=== PATIENT | female | born 1925 | race Caucasian/White ===

== ENCOUNTER 2017-03-24 12:00 | Inpatient (IN) | payer MEDICARE, OTHER ==
[~2017-03-24] VITALS: Ht 157.5 cm; Wt 56.0 kg
--- NOTE | ~2017-03-24 | CON ---
PATIENT'S NAME: ALBERTO LEROY [facility] AGE: 89 Y [address] ROOM: [id number] [place], [place] [address] LOCATION: G3N ADMIT DATE: 03/24/2017 Consultation DISCHARGE DATE: FAMILY PHYSICIAN: PHYSICIAN, UNKNOWN ATTENDING PHYSICIAN: Trav Gaston DATE OF CONSULTATION: 03/24/2017 REFERRING PHYSICIAN: LAURA BOND MD PCP: Foreign Garner MD CHIEF COMPLAINT: Right hip fracture following mechanical fall. HISTORY OF PRESENT ILLNESS: Ms. Leroy is an 89-year-old female who currently resides at [facility] in [place], [place] with a pertinent past medical history including atrial fibrillation, hypertension, hypothyroidism, and dyslipidemia. She is currently residing at [facility] after recovering from a left hip revision done by Dr. Diallo approximately six weeks ago. The history of this present illness is currently obtained by visiting with the patient herself, who is somewhat hard of hearing, but a reasonable historian along with her daughter, who is accompanying her and who is a very good historian and is able to give us information on the patient's circumstances. Ms. Leroy was ambulating this morning with assistance to the restroom when she had a fall. She had immediate pain on the right. At that point, a hip fracture was suspected, and she was brought to seek medical attention, where an x-ray was obtained and showed intertrochanteric fracture. At that point, arrangements were made for the patient to be transferred to [facility] for a higher level of care and for Orthopedic consultation. The patient, as stated, has recently been under the care of Dr. Martins and Dr. Diallo following her revision of the left hip. Her appetite has been somewhat diminished, but might have improved as of recent coming off the fentanyl patch. The patient had been on Lovenox for DVT prophylaxis following her left hip revision, and had recently been converted over to oral Coumadin. Daughter reports that her INR had been found to be quite elevated last Wednesday. The daughter believes an INR level was 11.2. Vitamin K had been given at that time, and she has not resumed the Coumadin. An INR this morning was 1.2 at the [facility] when seen. We were asked to consult for medical clearance to take her to the OR for repair. The patient denies any other complaints outside of her hip pain on the right. Prior to her left hip revision, she had been living independently in her own home. PATIENT'S NAME: ALBERTO LEROY [facility] AGE: 89 Y [address] ROOM: [place] [address] LOCATION: [facility] ADMIT DATE: 03/24/2017 Consultation DISCHARGE DATE: FAMILY PHYSICIAN: PHYSICIAN, UNKNOWN ATTENDING PHYSICIAN: Trav Gaston REVIEW OF SYSTEMS: All other review of systems were questioned and documented, and are negative outside of what is outlined in the history of present illness. PAST MEDICAL HISTORY: 1. Hypertension, essential. 2. Hypothyroidism. 3. Dyslipidemia. 4. Macular degeneration. 5. Atrial fibrillation, controlled. 6. Hard of hearing. PAST SURGICAL HISTORY: 1. Left hip ORIF in 01/2015. 2. Recent revision of the left hip approximately six weeks ago. 3. Right shoulder surgery. 4. Appendectomy. 5. Left knee surgery. 6. Venous stripping of the right lower extremity. 7. History of back surgery. ALLERGIES: NO KNOWN DRUG ALLERGIES. SOCIAL HISTORY: The patient is a , and lived independently by herself. She denies any history of tobacco use nor alcohol nor illicit drugs. She has eight children. FAMILY HISTORY: Mother at age 67 of a stomach cancer. Father at the age of 75 with emphysema. MEDICATIONS AT THE TIME OF ADMISSION: 1. Amiodarone 200 mg p.o. daily. 2. Calcium with vitamin D 600 mg p.o. daily. 3. Cardizem LA tablet extended release 180 mg p.o. daily. 4. Losartan 25 mg p.o. daily. 5. MiraLAX 17 g p.o. daily. 6. Senna one tablet p.o. daily. 7. Simvastatin 10 mg one tablet p.o. at bedtime. 8. Synthroid 75 mcg p.o. daily. 9. Vision vitamin tablet, one tablet p.o. daily. 10. Vitamin B12 tablet 1000 mcg p.o. daily. 11. Metoprolol tartrate 25 mg p.o. b.i.d. PATIENT'S NAME: ALBERTO LEROY [facility] AGE: 89 Y [address] ROOM: [address] [address] LOCATION: [facility] ADMIT DATE: 03/24/2017 Consultation DISCHARGE DATE: FAMILY PHYSICIAN: PHYSICIAN, UNKNOWN ATTENDING PHYSICIAN: Trav Gaston 12. Probiotic capsule one tablet p.o. b.i.d. 13. Refresh solution two drops to both eyes two times a day. 14. APAP 325 mg two tablets p.o. daily. 15. APAP 650 mg p.o. q.4 hours p.r.n. pain. 16. Biotene dry mouth liquid p.r.n. dry mouth. 17. Hydrocodone/APAP 5/325 one tablet p.o. every 6 hours p.r.n. pain. 18. Milk of magnesia 30 mL p.o. daily p.r.n. constipation. 19. Zofran ODT 8 mg p.o. every six hours p.r.n. nausea and vomiting. PHYSICAL EXAMINATION: VITAL SIGNS: On arrival, blood pressure was 157/81, pulse was 93, respirations were 16, temperature was 98.4, and 98% on 2 L of O2. GENERAL: A pleasant, elderly female, who rests in bed, and appears comfortable at this point. She is alert and awake and oriented x3. The patient is hard of hearing. HEENT: Normocephalic and atraumatic. Pupils are equal and reactive bilaterally. Mucosa appears a little tacky. NECK: Supple. No areas of tenderness. No lymphadenopathy. CARDIOVASCULAR: Currently regular rate and rhythm. S1 and S2. CHEST: Diminished, but clear to auscultation bilaterally. ABDOMEN: Soft and nondistended. No areas of tenderness. I cannot appreciate any organomegaly. Diminished bowel sounds. EXTREMITIES: The patient's right leg does appear shorter than left at this point when externally rotated. No edema is noted. No erythema. SKIN: I do not appreciate any breakdown. I do not appreciate any rashes. RADIOLOGIC STUDIES: Chest x-ray was obtained, and appears clear of any obvious abnormalities. I do not appreciate any infiltrates or acute processes. LABORATORY DATA: Currently pending. Labs from this morning are reviewed, and an INR of 1.2 was noted. UA is also currently pending. ASSESSMENT AND PLAN: 1. An 89-year-old who has suffered a mechanical fall, resulting in a right hip fracture, intertrochanteric, repair per Dr. Gaston. 2. Hypertension, essential. We will continue with her home medications. 3. Hypothyroidism. We will continue her home medications. 4. Dyslipidemia, stable. Continue with her home medications. 5. Atrial fibrillation. Rates are controlled at this time. We will continue with her amiodarone. Lovenox is currently on hold. We will discuss resuming this postoperatively and bridging with Lovenox. 6. Anemia, present on admission. Her hemoglobin on the morning labs was 10.1. We are checking now currently and will follow. PATIENT'S NAME: ALBERTO LEROY [facility] AGE: 89 Y [address] ROOM: [place] [address] LOCATION: [facility] ADMIT DATE: 03/24/2017 Consultation DISCHARGE DATE: FAMILY PHYSICIAN: PHYSICIAN, UNKNOWN ATTENDING PHYSICIAN: Trav Gaston 7. 'Do not resuscitate' status. The patient is cleared for the OR. We will follow along with the patient and help with management postoperatively as need be. The ultimate plan will be for the patient to transfer back to the [facility] in [place], [place], when deemed appropriate. HOMAR EPPS PA-C FOR LAURA BOND MD ABM/modl /[id number] CC: Foreign Garner MD d: 03/24/172119 t: 03/29/171948, CONSULTATION REPORT
--- NOTE | ~2017-03-24 | OR ---
PATIENT'S NAME: ALBERTO LEROY [facility] AGE: 89 Y [address] ROOM: [address] [address] LOCATION: [facility] ADMIT DATE: 03/24/2017 OR/Procedure Report DISCHARGE DATE: FAMILY PHYSICIAN: Foreign Garner MD ATTENDING PHYSICIAN: Trav Gaston SURGEON: Trav Gaston MD PAPER NOVELTY MAKER: DATE OF PROCEDURE: 03/24/2017 PREOPERATIVE DIAGNOSIS: Pertrochanteric fracture, right hip. POSTOPERATIVE DIAGNOSIS: Pertrochanteric fracture, right hip. OPERATION: ORIF right hip with long TFN. ANESTHESIA: Subarachnoid block. INDICATIONS: This is an 89-year-old female from [place], who fell sustaining a pertrochanteric fracture of her right hip. She has had problems with her left hip fracture and has had recent revision of her compression screw fixation. Her radiographs look like she has collapsed of the femoral head on the left side. DESCRIPTION OF PROCEDURE: The patient was brought to the operating room and when a satisfactory spinal anesthesia had been established, she was transferred to the fracture table. The fracture was reduced with longitudinal traction and internal rotation and reduction checked with the C-arm. Once satisfactory reduction had been obtained, her right hip and thigh were prepped and draped in an aseptic manner. A straight lateral incision was made beginning at the tip of the greater trochanter and carried down through subcutaneous fat. The fascia of the gluteus fifi was incised and the tip of the greater trochanter palpated and fenestrated with an awl. A long guide pin was pushed down the canal and that was over reamed. The proximal portion of the femur with the 16-mm reamer. The guide pin was measured and a 360 mm long nail selected. The guide pin was overreamed with a 13 mm reamer and it went easily. A 360 mm x 13 mm nail was then opened and pushed down the canal. A second incision was then made for the cannula for the helical blade. The cannula was pushed down to the bone and a guide pin placed attempting to get the guide pin in the middle of the head and neck on AP and lateral views. The guide pin was measured and a 95 mm long helical blade selected. Lateral cortex was reamed and the helical blade impacted up into the neck. The position of the implant was checked and the cannula for the helical blade removed. After the set screw had been tightened down and then loosened half a turn, traction was released and the helical blade pushed in compression mode. The cannula for the helical blade was removed and then the insertion device PATIENT'S NAME: ALBERTO LEROY [facility] AGE: 89 Y [address] ROOM: [place] [address] LOCATION: [facility] ADMIT DATE: 03/24/2017 OR/Procedure Report DISCHARGE DATE: FAMILY PHYSICIAN: Foreign Garner MD ATTENDING PHYSICIAN: Trav Gaston was removed. Position of the implants was checked proximally and was intact. The C-arm was brought distally to the distal holes. A perfect qagan tayagungin was obtained on the lateral view and an incision made over the oblong screw hole in the nail. A 3.2 drill bit was placed and a hole drilled through the bone, through the nail, and through the bone. It was measured and a 36 mm long locking screw placed and it tightened nicely. The wounds were irrigated copiously after position of the implants and fracture fragments have been checked with the C-arm. The fascia of the gluteus fifi was closed with interrupted #1 Vicryl. Subcutaneous fat on the proximal two wounds was closed with a running 2-0 Vicryl on the skin and all 3 wounds closed with skin noble. Dressings were applied and the patient sent to recovery area having tolerated the procedure well. MD NOAH VANCE/kalie /[id number] d: 03/25/17 0027 t: 04/07/17 1253, OPERATIVE SUMMARY
--- NOTE | ~2017-03-24 | HP ---
PATIENT'S NAME: ALBERTO LEROY [facility] AGE: 89 Y [address] ROOM: [place] [id number] LOCATION: [facility] ADMIT DATE: 03/24/2017 History & Physical DISCHARGE DATE: FAMILY PHYSICIAN: PHYSICIAN, UNKNOWN ATTENDING PHYSICIAN: Trav Gaston DATE OF SERVICE: CHIEF COMPLAINT: Intertrochanteric fracture, right hip. HISTORY: This 89-year-old female has been residing in the jail in [place], [place] recovering from a hardware exchange in her left hip and doing quite well. She was walking in the bathroom with assistance, lost her balance, and fell onto her right hip. She had severe pain, was unable to ambulate. X-rays of the right hip demonstrate a displaced intertrochanteric fracture of the right hip. There was no loss of consciousness, blackout spells, dizziness, headaches, or blurred vision. She had a left hip fracture fixed with a TFN nail about 2 years ago and the triflange nail was penetrating into the acetabulum so was changed to a shorter nail 2 or 3 weeks ago and she was recovering from that surgery and her left hip had felt better. PAST MEDICAL HISTORY: ALLERGIES: NONE. MEDICAL HISTORY: Hyperlipidemia; pain in left hip, subsequent ORIF left hip; overactive bladder; atrial fibrillation, chronic; osteoarthritis; duodenitis; hypertension, chronic; hyperlipidemia; hypothyroidism; low back pain; macular degeneration; fracture of sacrum couple months ago. FAMILY HISTORY: Stomach ulcers, pulmonary emphysema in father. SOCIAL HISTORY: Nonsmoker. No alcohol use. SURGICAL HISTORY: ORIF, left hip; hardware exchange couple weeks ago; right shoulder surgery; appendectomy; left knee surgery; vein stripping; low back disk surgery. REVIEW OF SYSTEMS: PATIENT'S NAME: ALBERTO LEROY [facility] AGE: 89 Y [address] ROOM: [address] [address] LOCATION: [facility] ADMIT DATE: 03/24/2017 History & Physical DISCHARGE DATE: FAMILY PHYSICIAN: PHYSICIAN, UNKNOWN ATTENDING PHYSICIAN: Trav Gaston No coughs, cold, fevers, chills, or sore throats. No chest pain, shortness of breath, or trouble breathing. No nausea, vomiting, or diarrhea. She does have constipation. No dysuria or hematuria. She is hard of hearing. Gets confused at times. No psychiatric problems. No endocrine problems. No diabetes. PHYSICAL EXAMINATION: GENERAL: She is awake, hard of hearing. VITAL SIGNS: Blood pressure 128/74, respirations 18, temperature 98, pulse 86 and regular. HEENT: Atraumatic, normocephalic. PERRL. EOMI. TMs clear. Throat clear. NECK: Supple. CHEST: Clear to auscultation. HEART: Regular rhythm. ABDOMEN: Soft, nontender without masses. SPINE: Nontender. SKIN: Intact. No rashes. MUSCULOSKELETAL: Her right hip is short and externally rotated. She has tenderness. No ecchymosis. Slight swelling. No warmth or redness. She dorsi and plantar flexes the ankles and toes of both feet. Has good pulses. There is no edema. IMAGING STUDIES: X-rays from [place], [place], AP pelvis and lateral right hip demonstrate a healed left intertrochanteric fracture with a TFN nail. She has a displaced 3- part intertrochanteric fracture of the right hip with varus angulation, also osteopenia. IMPRESSION: 1. 3-part displaced intertrochanteric fracture, right hip. 2. Status post open reduction and internal fixation, left hip with hardware exchange. 3. Hypertension. 4. Chronic obstructive pulmonary disease. 5. Atrial fibrillation by history. 6. Low back pain. 7. Hypothyroidism. 8. Dyslipidemia. 9. Hypertension. 10. Duodenitis. 11. Osteoarthritis. 12. Overactive bladder. 13. Fracture of sacrum. PLAN: PATIENT'S NAME: ALBERTO LEROY [facility] AGE: 89 Y [address] ROOM: [address] [address] LOCATION: [facility] ADMIT DATE: 03/24/2017 History & Physical DISCHARGE DATE: FAMILY PHYSICIAN: PHYSICIAN, UNKNOWN ATTENDING PHYSICIAN: Trav Gaston ORIF, right hip. I discussed details of the surgical procedure, risks, benefits, and alternatives emphasizing anesthetic, neurovascular, infectious complications explaining there is a 6-month recovery period. Discussed risks and benefits with the patient and her daughter who is her POA. They desire to proceed with surgery as planned. They understand that Dr. Gaston will be doing the surgery. MD CHERYL PINA/kalie /[id number] D: [id number] T: [id number] HISTORY & PHYSICAL
--- NOTE | ~2017-03-24 | DS ---
PATIENT'S NAME: ALBERTO LEROY [facility] AGE: 89 Y [address] ROOM: [facility] [place], [place] [address] LOCATION: [facility] ADMIT DATE: 03/24/2017 Discharge Summary DISCHARGE DATE: 03/28/2017 FAMILY PHYSICIAN: Foreign Garner MD ATTENDING PHYSICIAN: Trav Gaston ADMITTING DIAGNOSES: 1. Fall. 2. Peritrochanteric fracture, right hip. COMORBIDITIES: Include hypertension; atrial fib, on Coumadin chronically; acute blood loss anemia; hypothyroidism; and dyslipidemia. HOSPITAL COURSE: The patient fell and was unable to bear weight on the right leg. She was found to have a pertrochanteric fracture of the right hip. She was transferred to [facility]. Hospitalist was consulted for preoperative risk evaluation. She was taken to the operating room, a long TFN was placed. Postoperatively, she was typed and crossed and transfused 1 unit of packed red blood cells postoperatively, for hemoglobin of 6.7. Postop day 2, the patient's INR was 1.5 after the Coumadin had been restarted. After transfusion, the patient's hemoglobin was 7.9. Postop day 3, the patient was afebrile. The patient did have an episode of presyncope with no fall. Postop day 4, hemoglobin 8.7. Again after another unit was transfused, arrangements were made for the patient to be transferred to swing bed. DISCHARGE INSTRUCTIONS: Followup with Dr. Gaston in [place] or Dr. Rothman when next in [place]. Resume prehospitalization medication regimen. Daily PT/INRs. Continue cross coverage with Lovenox until INR is therapeutic. [place] dispensed 36 one q.4 h. p.r.n. pain. No other scripts are written. Weight bear as tolerated on the right and left. ADAM JOINER FOR MD VANESA VANCE/kalie /[id number] d: 04/08/17 1109 t: 04/12/17 1423, DISCHARGE SUMMARY
[~2017-03-24 12:00] MED LIST: 8 HOUR650 MG PO; AMIODARONE HCL200 MG PO; CARDIZEM CD180 MG PO; FEOSOL325 MG PO; LEVOTHROID(SYN75 MCG PO; LOPRESSOR25 MG PO; MIRALAX17 GM PO; MOBIC7.5 MG; NORCO 5-325 TA1 EACH PO; PREVACID30 MG PO; SENNA S TABLET1 EACH PO; VISION VITAMIN1 EACH PO; VITAMIN D1000 UNI1 PO; XARELTO20 MG PO; ZOCOR10 MG PO
--- NOTE | 2017-03-24 14:36 | NUR ---
Pt is 89 y/o female admit for right hip fx for . No allergies. Pt alert and oriented x3. Hx htn,mac.degeneration,hypercholest,afib,arthritis, back pain,constipation,ulcer,hypothyroid,urgency/frequency,leaking/dribbling. Pt resides at the [facility] in [place], [place]. She had a left hip repair about 2 months ago and has been in the [facility] for therapy. Pt fell going to bathroom this am. Denies dizziness.
[2017-03-24] MEDS ORDERED: TYLENOL325 MG PO (15:13)
[2017-03-24 15:14] LABS: BILIRUBIN URINE NEGATIVE (NEGATIVE); BLOOD URINE 150 /UL (NEGATIVE); COLOR URINE YELLOW (YELLOW); GLUCOSE URINE NEGATIVE (NEGATIVE); KETONE URINE 15 mg/dL (NEGATIVE); LEUKOCYTES URINE 500 /UL (NEGATIVE); NITRITE URINE NEGATIVE (NEGATIVE); PROTEIN URINE 30 mg/dL (NEGATIVE); TURBIDITY URINE CLEAR (CLEAR); UROBILINOGEN URINE NORMAL (NORMAL)
[2017-03-24] MEDS ORDERED: CALCIUM 600 +1 EACH PO (15:19)
[2017-03-24] MEDS ORDERED: VITAMIN B-121000 MCG PO (15:19)
[2017-03-24] MEDS ORDERED: COZAAR25 MG PO (15:19)
[2017-03-24] MEDS ORDERED: PROBIOTIC1 EAC2 PO (15:20)
[2017-03-24] MEDS ORDERED: REFRESH PLUS1 EACH OPHTH (15:20)
[2017-03-24] MEDS ORDERED: BIOTENE ORALB44.3 ML PO (15:21)
[2017-03-24] MEDS ORDERED: MILK OF MA400 MG/5 M PO (15:21)
[2017-03-24] MEDS ORDERED: ZOFRAN ODT8 MG PO (15:22)
[2017-03-24 15:23] LABS: INR - (THERAPEUTIC) 1.2 (0.92-1.07); PROTIME 12.6 SECONDS (9.8-11.4)
[2017-03-24 15:48] LABS: EPITHELIAL URINE 0-2 #/HPF (NEGATIVE); WBC URINE 20-50 #/HPF (NEGATIVE)
[2017-03-24 15:50] LABS: WBC CLUMPS URINE FEW (NEGATIVE)
[2017-03-24 15:51] LABS: MUCUS URINE 1+ (NEGATIVE); YEAST URINE MODERATE (NEGATIVE)
[2017-03-24 15:52] LABS: BACTERIA URINE FEW (NEGATIVE)
--- NOTE | 2017-03-24 17:10 | NUR ---
Significant Event: Arrived to unit at 1355. Moved to bed with three assist. Bruise to R) upper arm, bruise with swelling to R) forehead, MD aware. IV to L) hand saline locked. O2 at 2L per nasal cannula. Transfered to [facility] at 1620. Daughter at bedside. Follow up:
--- NOTE | 2017-03-25 04:25 | NUR ---
Patient is alert and oriented, pleasant and cooperative, daughter at bedside, pain has been undercontrol, csm with in normal limits dressings x2 to right hip clean dry and intact, VSS, patient has rested well tonight
[2017-03-25 05:15] LABS: HEMOGLOBIN 7.6 g/dL (10.0-15.0)
--- NOTE | 2017-03-25 11:30 | NUR ---
Introduced self/role to patient and her daughter, Neida. Patient was at [facility] in [place], [place] but their hope is that patient can be discharged to the swing bed there for a little while. Neida will call the SNF to let them know and she what needs to be done about holding the bed. Daughter thinks patient would need to go by ambulance. I explained that process and that there was no guarantee to be covered by Medicare but if we felt it to be medically needed we had a form we would fill out. Placed my name on her marker board. Placed ambulance cert form on the chart and left a note if we felt it appropriate to use. 1200 Called Jyothi and [facility]. Faxed referral. 1335 Jyothi called and they can accept Wednesday pending no changes in their bed status. 1410 Called Devi with EMS and arranged for 1000 transport Wednesday. Left this info on a sticky on the chart. Updated charge nurse Palmira and patient/daughter. 1539 Amaris called and accepting doctor will be Olga Lidia Rojo #[phone]. They also want a fresh H & H done Wednesday and called to them in report. Called Palmira about H & H. Called and updated Dr. Gaston. Note on chart with doc number and nurse number/fax number for orders. P#[phone] and F#[phone].
[2017-03-25 16:37] LABS: INR - (THERAPEUTIC) 1.25 (0.92-1.07); PROTIME 13.2 SECONDS (9.8-11.4)
--- NOTE | 2017-03-25 17:56 | NUR ---
Pt alert and oriented. Forgetful. She has been on room air. [place] po x1 at 0840 and otherwise tylenol last at 1730. She rates pain 0-5 but very little this afternoon. Has voided x2, 75 ml amt and is dark. Pt has 2 intact dry mepilex Rt hip and thigh. Started on coumadin today. CSM WNL. Pt Hgb 7.6 and will recheck tomorrow. Plan transfer possibly wednesday. Daughter here most of shift. Ice to hip at times. IS ust at 1250
--- NOTE | 2017-03-26 04:39 | NUR ---
Patient is alert and oriented, can be sarcastic at times, had increased pain this shift given oral percocet for pain control, transfers fair 2 assist tends to just throw self onto commode or bed when transfering needs lots of cueing, dressings to hip are clean dry and intact csm with in normal limits, has had good urine output this shift, bruise noted to back of her head this shift
[2017-03-26 05:34] LABS: HEMATOCRIT 20.1 % (30.0-46.0); HEMOGLOBIN 6.5 g/dL (10.0-15.0)
--- NOTE | 2017-03-26 12:55 | NUR ---
9075 Talked with Brijesh Pedraza, he tells me that Gayatri was lowered to the floor this morning by staff, it wasn't a fall, but she was lowered to the floor. Her HGB was also low this morning, 6.5, so they were going to be giving her some more blood. Because of this, I did call and leave a VM for Jyothi at [facility] to let her know about this and make sure that they would still accept Gayatri on Wednesday like planned, or it they were going to have us wait a few days more. No call back from Jyothi at this time. I also tried to call her back again at 1245 today, but she was still not in her office. Left another VM asking for a phone call back before the end of the day today. At this time, we have ambulance set up for 1000 tomorrow to take Gayatri to [facility]. Fax cover sheet was left on the chart for orders to be faxed to them before she goes. RN to RN and MD to MD numbers also on the chart. Our staff here does need to make sure that another H&H is drawn before Gayatri leaves and that lab is shared with [facility] during report to make sure that they are still fine with taking her. Nursing aware of this and so is Brijesh Pedraza with the hospitalists. CM to continue to follow and assist.
[2017-03-26 13:31] LABS: INR - (THERAPEUTIC) 1.59 (0.92-1.07); PROTIME 16.8 SECONDS (9.8-11.4)
[2017-03-26 16:04] LABS: HEMATOCRIT 23.5 % (30.0-46.0)
[2017-03-26 16:05] LABS: HEMOGLOBIN 7.9 g/dL (10.0-15.0)
--- NOTE | 2017-03-26 17:31 | NUR ---
Pt alert, oriented but forgetful. She had hgb today of 6.5. 1 unit blood given over 4 hr and also had 500 ml NS bolus after had a syncope episode in bathroom. Pt was lowered slowly to the floor at that time. Was in bed during blood admin and bolus but later this afternoon up to BSC and now in recliner. No syncope. States she feels tired. [place] po x2 last at 1500 for hip pain. Bruis posterior head, Rt upper arm and Rt hip from previous fall at home. Pt has 2 mepilex dressings dry and intact Rt hip. Voids on BSC. Pt uses IS at 1000. O2 on at 2 liters when sleeping earlier when sats down to 87% but now 97 % on Room air. Hgb now up to 7.9 1 hr post blood transfusion. Plan to go to swingbed when medically ready.
--- NOTE | 2017-03-27 04:46 | NUR ---
Shift Summary: Patient is a one assist to transfer small distances. She needs verbal cues. Is forgetful at times. Took last [facility] at 0404. Tolerating regular diet well. Voiding without difficulty. Has 3 small Mepilex dressings, one to right hip, right lateral thigh, right lateral knee. Waiting for placement in [facility].
[2017-03-27 05:26] LABS: HEMATOCRIT 23.3 % (30.0-46.0)
[2017-03-27 05:27] LABS: HEMOGLOBIN 7.8 g/dL (10.0-15.0)
[2017-03-27 10:04] LABS: HEMATOCRIT 24.8 % (30.0-46.0); HEMOGLOBIN 8.3 g/dL (10.0-15.0)
--- NOTE | 2017-03-27 15:41 | NUR ---
Significant Event: pt alert but forgetful at times. very [place]. up with 1 assist to the commode. voids well. no bm today. dressing to hip x 3. ice to hip. hgb 8.3 this morning. family in the room this shift. srinath's dc'd by dr higgins. only given tylenol as needed for pain. waiting transfer to [place]. Follow up:
--- NOTE | 2017-03-28 03:34 | NUR ---
Shift Summary: Patient can ambulate with one assist. Voiding without difficulty. Had a very small BM after MOM last night. Had nausea and small emesis at beginning of shift. Resolved with zofran. On scheduled tylenol for pain. Waiting for placement in [place].
[2017-03-28 07:50] LABS: HEMATOCRIT 25.9 % (30.0-46.0); HEMOGLOBIN 8.7 g/dL (10.0-15.0)
--- NOTE | 2017-03-28 11:28 | NUR ---
Pt alert, oriented, forgetful at times. She has mild pain Rt hip rated last at 4. Tylenol po 640 mg at 1100. Pt transfers with one assist with walker and gait belt, weight bear as kranthi Rt hip. 3 small mepilex dressings intact to Rt hip and thigh. Old drng on upper dressing. They are waterproof. Pt had med BM yest. Pt has bruising Rt hip along with swelling, Large bruise Rt upper arm and posterior head. Pt was on telemetry for history of atrial fib. Pt had unit blood on 03/26 for Hgb of 6.5 Today it is 8.7 Had a syncope episode also that day and assisted to floor. No syncope since that time. Pt voids with no problems, eating and drinking fairly well now. Pt CSM WNL. Had fall a few months ago fracturing left hip. Pt had been on coumadin prior to admit after fall and it was stopped. Hasn't been restarted yet so will need addressed in the future.
== END 2017-03-28 11:40 | DRG 482 ==
LOC: G3N 13:43
PROVIDERS: Internal Medicine; Physician Assistant; ADMIT Orthopaedic Surgery
PROC: 2W6NXZZ Traction of Right Upper Leg (ICD-10-PCS; principal; 2017-03-24)
PROC: 0QS604Z Reposition Right Upper Femur with Internal Fixation Device, Open Approach (ICD-10-PCS; principal; 2017-03-24)
PROC: 30233N1 Transfusion of Nonautologous Red Blood Cells into Peripheral Vein, Percutaneous Approach (ICD-10-PCS; 2017-03-26)
DX: S72.141A Displaced intertrochanteric fracture of right femur, initial encounter for closed fracture (principal); J44.9 Chronic obstructive pulmonary disease, unspecified; I48.91 Unspecified atrial fibrillation; D64.9 Anemia, unspecified; I10 Essential (primary) hypertension; W18.30XA Fall on same level, unspecified, initial encounter; Z91.81 History of falling; Y92.129 Unspecified place in nursing home as the place of occurrence of the external cause; E03.9 Hypothyroidism, unspecified; E78.5 Hyperlipidemia, unspecified; M19.90 Unspecified osteoarthritis, unspecified site; Z87.81 Personal history of (healed) traumatic fracture; H35.30 Unspecified macular degeneration; Z66 Do not resuscitate
CPT/HCPCS: C1713; J0690; J1100; J1650; J2405; J3010; J7030; J7120; P9016

== ENCOUNTER → 2017-03-28 | Outpatient (CLI) | payer MEDICARE, OTHER ==
[~2017-03-28] MED LIST changes: +BIOTENE ORALB44.3 ML PO; +CALCIUM 600 +1 EACH PO; +COZAAR25 MG PO; +MILK OF MA400 MG/5 M PO; +PROBIOTIC1 EAC2 PO; +REFRESH PLUS1 EACH OPHTH; +TYLENOL325 MG PO; +VITAMIN B-121000 MCG PO; +ZOFRAN ODT8 MG PO
== END | disposition disaster alternative care site (69) ==
LOC: GAMB 03-24 11:47
DX: S79.911A Unspecified injury of right hip, initial encounter (principal); S72.001A Fracture of unspecified part of neck of right femur, initial encounter for closed fracture; M25.551 Pain in right hip; E03.9 Hypothyroidism, unspecified; I10 Essential (primary) hypertension; I48.2 Chronic atrial fibrillation; H91.8X9 Other specified hearing loss, unspecified ear; M54.9 Dorsalgia, unspecified; Z79.891 Long term (current) use of opiate analgesic; Z79.01 Long term (current) use of anticoagulants; Z79.899 Other long term (current) drug therapy; W19.XXXA Unspecified fall, initial encounter
CPT/HCPCS: A0425; A0428